=== PATIENT | male | born 1945 | race Two or more races ===

== ENCOUNTER 2025-06-01 15:53 | Emergency (ER) | payer OTHER ==
[~2025-06-01] VITALS: Ht 170.2 cm; Wt 56.7 kg
[2025-06-01] MEDS ORDERED: TAMS0.4C (16:03)
[2025-06-01] MEDS ORDERED: COZAAR50 MG PO (16:03)
[2025-06-01] MEDS ORDERED: ATORVASTATIN CA40 MG PO (16:03)
[2025-06-01] MEDS ORDERED: CEFTRIAXONE SODIUM 1,000 MG VIAL IM STA (16:31)
[2025-06-01] MEDS ORDERED: DEXAMETHASONE SODIUM PHOSPHATE 4 MG/ML VIAL IM STA (16:31)
[2025-06-01] MEDS ORDERED: DEXAMETHASONE SODIUM PHOSPHATE 4 MG/ML VIAL ONE (18:12)
[2025-06-01] MEDS ORDERED: CEFTRIAXONE SODIUM 1,000 MG VIAL ONE (18:12)
[2025-06-01] MEDS ORDERED: LIDOCAINE HCL 1% 10ML VIAL ONE (18:51)
[2025-06-01 19:35] LABS: INR 1.16
[2025-06-01 19:46] LABS: BASO % 0.5 % (0.1-1.2); EOS # 0.02 (0.04-0.54); EOS % 0.1 % (0.7-7.0); LYMPH # 1.08 (1.18-3.74); LYMPH % 3.9 % (19.3-53.1); MEAN PLATELET VOLUME 11.70 fl (9.4-12.4); MONO # 3.32 (0.24-0.82); MONO % 12.0 % (4.7-12.5); NEUT # 22.86 (1.56-6.13); NEUT % 82.7 % (34.0-71.1); RED CELL DISTRIBUTION WIDTH 17.3 % (11.6-14.4)
[2025-06-01 20:14] LABS: BUN CREA RATIO 25.0 (7.0-25.0); CREATININE SERUM 0.76 mg/dL (0.70-1.30); GFR 98.94; GLUCOSE FASTING 88.0 mg/dL (65-100); OSMOLALITY SERUM 275.0 MOSM/KG (275-295)
[2025-06-01] MEDS ORDERED: 0.9 % SODIUM CHLORIDE 1,000 ML IV STA (21:39)
[2025-06-02] MEDS ORDERED: CEFTRIAXONE SODIUM 1,000 MG in 0.9 % SODIUM CHLORIDE 100 ML IV SCH (09:00)
[2025-06-02] MEDS ORDERED: CEFTRIAXONE SODIUM 1,000 MG VIAL ONE (09:08)
== END 2025-06-02 09:46 | disposition designated cancer center or children's hospital (05) ==
LOC: ER 15:53
PROVIDERS: General Practice
DX: S02.2XXA Fracture of nasal bones, initial encounter for closed fracture (principal); S27.321A Contusion of lung, unilateral, initial encounter; S20.212A Contusion of left front wall of thorax, initial encounter; S01.112A Laceration without foreign body of left eyelid and periocular area, initial encounter; W07.XXXA Fall from chair, initial encounter; Y93.89 Activity, other specified; Y92.018 Other place in single-family (private) house as the place of occurrence of the external cause; Y99.9 Unspecified external cause status; I10 Essential (primary) hypertension
CPT/HCPCS: 12013; 36415; 70450; 70486; 71110; 71260; 72125; 74176; 82803; 93005; 99285; J0696; J1100; J7030; Q9965